=== PATIENT | male | born 1945 | race Caucasian/White ===

== ENCOUNTER → 2016-06-28 | Outpatient (CLI) | payer MEDICARE, OTHER ==
[~2016-06-28] MED LIST: ADVIL200 MG PO; MEDROL4 M1 PO; NORCO 5-325 TA1 EACH PO; PERCOCET 5-3251 EACH PO
--- NOTE | ~2016-06-28 | ESTC ---
Cardiac Perfusion Imaging Demographics Patient Name TAMAR Chapin Gender Male Patient Number [id number] Race Visit Number [id number] Ethnicity Corporate ID Room Number Accession Number [id number] Height Date of 1945 Weight Age 71 year(s) BSA Referring Physician Shellie Barrett Interpreting Shellie Date of study 06/28/2016 Physician Arnold Supervising /GIOVANI ESPINO Technologist Shivam Barrett Ordering Physician Stress Ingrid Quigley mortuary technician RD Stress ECG Reading Shellie Nurse Neville Emerson RN Physician Arnold Procedure Procedure Type: Nuclear Stress Test:Exercise, Cardiolite Stress Test Procedure Start time: 06/28/2016 08:53 Indications: Bradycardia and Symptomatic Bradycardia. Conclusions Summary Perfusion Images: The overall quality of the study is good. Left ventricular cavity is noted to be normal on the stress and rest studies. The right ventricle is not visualized and cannot be assessed. TID ratio is 1.12 Stress SPECT images and Rest SPECT images demonstrate homogenous tracer distribution throughout the myocardium except for minimal decrease uptake in the area involving the inferior wall consistent with soft tissue attenuation. Gated SPECT imaging reveals normal myocardial thickening and wall motion. The left ventricular ejection fraction was calculated to be 64%. Impression ECG portion of stress test is clinically negative for ischemia by diagnostic criteria. Myocardial perfusion imaging is probably normal. The minimal inferior wall matched defect is consistent with soft tissue attenuation. Overall left ventricular systolic function was normal without regional wall motion abnormalities. There are no previous studies for comparison . Stress Protocols Resting ECG sinus bradycardia, LAFB Pre-stress physical exam: Patient assessed by Dr Burt prior to testing. Predicted HR: 149 bpm ECG Findings No ECG changes suggestive of ischemia. Arrhythmias Rare PVCs Symptoms Fatigue at peak exercise Stress Interpretation Pt walked for 9:53 min by Valente protocol. Appropriate hemodynamic response to exercise. No significant ST-T wave changes with exercise. EKG portion is negative for ischemia by diagnostic criteria. Nuclear images are pending Imaging Results Applied corrections - Motion correction applied High risk findings Summed scores - Summed stress score: 3 - Summed rest score: 3 - Summed difference score: 0 Stress ejection Ejection fraction:65 % EDV :170 ml ESV :60 ml Stroke volume :110 ml LV mass :190 gr Imaging Protocols Rest Stress Isotope:Tc99m Sestamibi IV Isotope: Tc99m Sestamibi IV Isotope dose:14.6 mCi Isotope dose:4.34 mCi Date:06/28/2016 07:33 Date:06/28/2016 09:45 Technique: SPECT Technique: Gated Supine SPECT Supine Scan Time:45-60 minutes post Scan Time:45-60 minutes post injection injection Medical History Admission Data Admission date: 06/28/2016 Admission Time: 07:14 Hospital Status: Outpatient. Signatures dtt: ARNOLD BURT dtd: 06/28/16 0853 Physician Self Edit
== END | disposition disaster alternative care site (69) ==
LOC: GRAD 07:14
DX: R00.1 Bradycardia, unspecified (principal); R42 Dizziness and giddiness
CPT/HCPCS: A9500

== ENCOUNTER 2016-07-05 12:20 | Observation (INO) | payer MEDICARE, OTHER ==
[~2016-07-05] VITALS: Ht 182.9 cm; Wt 101.6 kg
--- NOTE | ~2016-07-05 | OR ---
PATIENT'S NAME: DAVID BOYLE [facility] AGE: 71 Y [address] ROOM: [place] [address] LOCATION: GPCU ADMIT DATE: 07/05/2016 OR/Procedure Report DISCHARGE DATE: 07/06/2016 FAMILY PHYSICIAN: Tracey Le MD ATTENDING PHYSICIAN: Deep Jimenez SURGEON: Deep Jimenez DO FRAMING MILL SUPERVISOR: DATE OF PROCEDURE: 07/05/2016 PREOPERATIVE DIAGNOSIS: Third-degree atrioventricular block. POSTOPERATIVE DIAGNOSIS: Third-degree atrioventricular block. PROCEDURES: Insertion of dual-chamber permanent pacemaker via the left subclavian vein under fluoroscopic guidance. REFERRING PHYSICIAN: Lana Mcmillan MD BRIEF HISTORY: Mr. Boyle is a 71-year-old patient of Dr. Le who has seen Dr. Mcmillan after followup for the heart monitor, and was found to have third-degree AV block. He was admitted to the hospital, and has been brought to the Operative Suite today for placement of his device. DESCRIPTION OF PROCEDURE: He was sterilely prepped and draped over the anterior chest wall. The 1% lidocaine was used to infiltrate the left infraclavicular space after appropriate IV sedation was achieved. The patient was placed into a Trendelenburg position, and the subclavian vein was accessed without difficulty. Guidewires were placed x2 under fluoroscopic guidance into the right atrium. An incision was created, and a pocket was formed. Electrocautery was used for hemostasis. Guidewires were brought through the incision. Via sheath and dilator assembly, we placed our leads. We began with the right ventricular lead. This was a Blanch [employer] MRI lead, model 7742, serial number [id number], placed in the right ventricular mid septum sensing R-waves of 8.3, with a voltage threshold of 0.5 V at 0.5 msec with pacing impedance of 710 ohms. In a similar fashion, we placed our atrial lead, also a [employer] MRI lead, model 7741, serial number [id number]. It was placed in the right atrial appendage sensing P-waves of 2.9, with a measured threshold of 1.0 V at 0.5 msec. It has a pacing impedance of 652 ohms. Each lead was then connected to the generator, which was a [employer] Essentio MRI, model L111, serial number [id number]. Leads and generators were placed into the pocket. Appropriate sensing and pacing were noted. The patient was paced DDDR with a lower rate limit of 60 and maximal tracking limit of 130. Incision was closed in a layered fashion with a 2-0 Vicryl and 4-0 Monocryl. Pressure dressings were applied. The patient was transferred to the Recovery area in a stable condition. PATIENT'S NAME: DAVID BOYLE [facility] AGE: 71 Y [address] ROOM: [place] [address] LOCATION: GPCU ADMIT DATE: 07/05/2016 OR/Procedure Report DISCHARGE DATE: 07/06/2016 FAMILY PHYSICIAN: Tracey Le MD ATTENDING PHYSICIAN: Deep Jimenez DO DANNY JULIO/cuauhtemoc /[id number] d: 07/10/164 t: 07/11/16 1044, OPERATIVE SUMMARY
--- NOTE | 2016-07-05 13:39 | NUR ---
PT is 71 y/o male admit for bradycardia for . Pt is less than willing to share information regarding his health hx and what happened with his low heart rate. He states he had a monitor on for a week and one doctor said he didn't need a pacemaker and another one called today and said he did need one. Hx lightheaded,bronchitis,urgency/frequency,nocturia. No surgeries. REsides at home with his . Plan is for pacemaker. According to [facility] records pt had a nuclear stress test on June 28 which didn't show any EKG changes during the test.
[2016-07-05] MEDS ORDERED: ADVIL200 MG PO (14:26)
[2016-07-05 15:09] LABS: PROTIME 10.5 SECONDS (9.6-11.1)
[2016-07-05 15:13] LABS: ALBUMIN 3.8 gm/dL (3.5-5.0); ANION GAP 14.6 (10.0-19.0); BLOOD UREA NITROGEN 13 mg/dL (6-24); CALCIUM 8.9 mg/dL (8.5-10.5); CHLORIDE 109 mMol/L (96-110); CO2 27 mMol/L (22-32); CREATININE 0.9 mg/dL (0.6-1.3); ESTIMATED GFR (MDRD EQUATION) > 60; PHOSPHORUS 2.8 mg/dL (2.5-4.9); POTASSIUM 3.6 mMol/L (3.7-5.1)
[2016-07-05 15:22] LABS: SODIUM 147 mMol/L (135-145)
--- NOTE | 2016-07-05 15:28 | NUR ---
Significant Event: A/O. HRs 38-45 sinus. Denies pain. Up ad georgina/assist. C/O lightheadedness at times. Down for dual chamber pacer with Dr Jimenez [id number] Follow up: post op pacer cares/ dismiss tomorrow
[2016-07-05 17:38] LABS: BILIRUBIN URINE NEGATIVE (NEGATIVE); BLOOD URINE NEGATIVE /UL (NEGATIVE); COLOR URINE YELLOW (YELLOW); GLUCOSE URINE NEGATIVE (NEGATIVE); KETONE URINE NEGATIVE (NEGATIVE); LEUKOCYTES URINE NEGATIVE /UL (NEGATIVE); NITRITE URINE NEGATIVE (NEGATIVE); PROTEIN URINE NEGATIVE (NEGATIVE); SPEC GRAVITY URINE 1.005 (1.003-1.035); TURBIDITY URINE CLEAR (CLEAR); UROBILINOGEN URINE NORMAL (NORMAL)
--- NOTE | 2016-07-06 05:12 | NUR ---
Significant Event: Patient is alert/oriented x3. Vital signs stable. Pacemaker site covered with dressings, C/D/I. [place] given x2 last night with relief. CSM on left side WNL. Continues on room air. Follow up: Dismiss to home today.
[2016-07-06 10:06] LABS: ANION GAP 11.7 (10.0-19.0); CALCIUM 8.6 mg/dL (8.5-10.5); CREATININE 1.2 mg/dL (0.6-1.3); MAGNESIUM 2.4 mg/dL (1.3-2.6); POTASSIUM 3.7 mMol/L (3.7-5.1)
[2016-07-06] MEDS ORDERED: NORCO 5-325 TA1 EACH PO (11:12)
--- NOTE | 2016-07-06 11:20 | NUR ---
Introduced self an role of care management to patient and his . [place] Patient plans home today. will assist as needed at home. Denies discharge needs at this time.
--- NOTE | 2016-07-06 11:30 | NUR ---
Patient dismissed to home with . Denies question or concern of dismissal. Walked with staff out [place] entrance. Pacer dressing removed and open to air. Site well approximated and WNL. Discussed at length pacer site care and activity restrictions.
[2016-12-07] MEDS ORDERED: ADVIL200 MG PO (16:12)
[2016-12-07] MEDS ORDERED: PERCOCET 5-3251 EACH PO (16:23)
[2016-12-07] MEDS ORDERED: MEDROL4 M1 PO (16:24)
== END 2016-07-06 11:34 | disposition disaster alternative care site (69) ==
LOC: GPCU 12:20
PROVIDERS: Thoracic Surgery (Cardiothoracic Vascular Surgery); ADMIT Internal Medicine Cardiovascular Disease
PROC: 0JH606Z Insertion of Pacemaker, Dual Chamber into Chest Subcutaneous Tissue and Fascia, Open Approach (ICD-10-PCS; principal; 2016-07-05)
PROC: 02H63JZ Insertion of Pacemaker Lead into Right Atrium, Percutaneous Approach (ICD-10-PCS; 2016-07-05)
PROC: 02HK3JZ Insertion of Pacemaker Lead into Right Ventricle, Percutaneous Approach (ICD-10-PCS; 2016-07-05)
DX: I44.2 Atrioventricular block, complete (principal); Z87.891 Personal history of nicotine dependence
CPT/HCPCS: C1785; C1898; G0378; J0690; J7030; J7050

== ENCOUNTER → 2016-08-01 | Outpatient (CLI) | payer MEDICARE, OTHER | END | disposition disaster alternative care site (69) | LOC: GRAD 08:01 | DX: Z13.6 Encounter for screening for cardiovascular disorders (principal); Z87.891 Personal history of nicotine dependence ==

== ENCOUNTER → 2016-11-05 | Day surgery (SDC) | payer MEDICARE, OTHER ==
[~2016-11-05] VITALS: Ht 182.9 cm; Wt 100.1 kg
== END ==
LOC: GPOC 10-29 09:00 → GEND 06:57 → GPOC 07:00
PROC: 0DJD8ZZ Inspection of Lower Intestinal Tract, Via Natural or Artificial Opening Endoscopic (ICD-10-PCS; principal; 2016-11-05)
DX: Z12.11 Encounter for screening for malignant neoplasm of colon (principal); K57.30 Diverticulosis of large intestine without perforation or abscess without bleeding; K64.8 Other hemorrhoids
CPT/HCPCS: J2001; J7030

== ENCOUNTER → 2016-12-06 | Outpatient (CLI) | payer MEDICARE, OTHER | END | disposition disaster alternative care site (69) | LOC: GRAD 14:10 | DX: M54.5 Low back pain (principal); M48.06 Spinal stenosis, lumbar region; M51.26 Other intervertebral disc displacement, lumbar region; M51.36 Other intervertebral disc degeneration, lumbar region; M51.37 Other intervertebral disc degeneration, lumbosacral region; M47.896 Other spondylosis, lumbar region; M47.897 Other spondylosis, lumbosacral region ==

== ENCOUNTER 2016-12-11 12:25 | Day surgery (SDC) | payer MEDICARE, OTHER ==
[~2016-12-11] VITALS: Ht 182.9 cm; Wt 100.0 kg
--- NOTE | ~2016-12-11 | OR ---
PATIENT'S NAME: DAVID BOYLE [facility] AGE: 71 Y [address] ROOM: [place] [address] LOCATION: [facility] [place] ADMIT DATE: 12/11/2016 OR/Procedure Report DISCHARGE DATE: 12/12/2016 FAMILY PHYSICIAN: Tracey Le MD ATTENDING PHYSICIAN: Elicia Chaudhary SURGEON: Elicia Chaudhary MD IT INTERN: Majo Ramirez. DATE OF PROCEDURE: 12/11/2016 CORRECTED COPY -- ACCT NO / 12-18-2016 / KLD PREOPERATIVE DIAGNOSIS: Lumbar spinal stenosis. POSTOPERATIVE DIAGNOSIS: Lumbar spinal stenosis. PROCEDURES PERFORMED: 1. Bilateral laminectomy with decompression of neural elements and foraminotomy at L3-4. 2. Bilateral laminectomy with decompression of neural elements and foraminotomy at L4-5. ANESTHESIA: General. ANESTHESIA PROVIDER: Frederic English CRNA. HISTORY: The patient is a 71-year-old gentleman, who presented with back pain and left foot drop and left leg numbness. Imaging studies showed severe spinal stenosis of L3-L4 and to some degree at L4-5 as well. Attempts at nonoperative treatments were unsuccessful. The patient's foot drop became worse and his leg weakness increased to the point where he went from using a cane to now using a walker. With the development, I felt that surgery was indicated. The above procedure, benefits, and risks were discussed with the patient and his . With their consent, the patient was brought to the operating room for surgery. PROCEDURE IN DETAIL: In the operating room, the patient was placed in a supine position. Anesthesia was induced. He was intubated. He was then rolled to a prone position on a Deacon table taking care to protect all pressure points. The incision was marked out in the midline of the lower back and the whole area was prepped and draped in a sterile fashion. Local anesthesia was infiltrated. The incision was opened with a #10 blade. The Bovie was used to deepen the incision. Self-retaining retractors were applied. Paraspinous muscles were dissected off the spinous process and laminae of L4, L3, and L5. Intraoperative x-ray was obtained to verify our levels. Hemostasis was achieved. The retractors were adjusted. Bilateral laminectomy was carried out at L3, L4, and L5. The drill was used to drill down the laminae on both sides for each of the above vertebrae. The juan miguel PATIENT'S NAME: DAVID BOYLE [facility] AGE: 71 Y [address] ROOM: [place], [place] [address] LOCATION: [facility] [place] ADMIT DATE: 12/11/2016 OR/Procedure Report DISCHARGE DATE: 12/12/2016 FAMILY PHYSICIAN: Tracey Le MD ATTENDING PHYSICIAN: Elicia Chaudhary was then used to break off the laminae and spinous processes en bloc. The laminectomy continued until the central canal was decompressed. Attention was then directed to the foramina and these were also inspected and decompressed. I worked more on the left side, which is the side where the patient had the footdrop. At the end of the procedure, the nerve roots could be seen going out into their respective foramina and the central canal was also completely decompressed. Bone wax was used to wax the edges of the laminectomy. Irrigation was used to wash out the debris. The incision was closed in standard fashion. Nylon was used to close the skin. A sterile dressing was applied. The patient was then rolled back to a supine position. His anesthesia was reversed. He was extubated and taken to the recovery room to complete his recovery. I expect he will do well. Swabs, needles, and instruments were all accounted for. Estimated blood loss was less than 500 mL. There was no reason for blood transfusion. MD GUZMAN TEJADAO/modl /[id number] CC: Tracey Le MD CORRECTED COPY -- ACCT NO / 12-18-2016 / KLD d: t: 12/18/16 0715, OPERATIVE SUMMARY
--- NOTE | 2016-12-12 01:29 | NUR ---
Significant Event: PATIENT ALERT AND ORIENTED X 3. VSS. TAKING PO AND VOIDING WITHOUT DIFFICULTY. UP WITH 1 ASSIST, GB AND WALKER TO BR. MEDIPORE DRESSING TO BACK C/D/I. PATIENT ACCIDENTLY PULLED IV OUT OF L) HAND. REFUSED TO HAVE NEW IV PLACED. PATIENT HAD IV INFILTRATE IN R) FA IN OR - REMAIN SWOLLEN. WARM PACKED ON/OFF THROUGHOUT NIGHT. L) LEG WEAKER THAN RIGHT - DOES HAVE FOOT DROP TO LEFT FOOT ALSO. OTHER CSM'S WNL. PERCOCET AND ADVIL GIVEN LAST AT 2210. PLEASANT AND COOPERTIVE WITH CARES. POSSIBLE D/C TO HOME TODAY. Follow up:
--- NOTE | 2016-12-12 17:25 | NUR ---
DISCHARGE: D: ORDERS RECEIVED FOR THE PATIENT TO BE DISCHARGED TO HOME TODAY WITH HIS . I: DISMISSAL INSTRUCTIONS WERE PREPARED AND REVIEWED WITH THE PATIENT AND HIS . THE FOLLOWING INFORMATION WAS DISCUSSED INCLUDING [employer]ES TEACHING SHEETS PROVIDED: DISCHARGE INSTRUCTIONS FOR A LAMINECTOMY, RECOVERING FROM LAMINECTOMY, PERCOCET AND PREVENTING DVT. REVIEWED NEW PRESCRIPTIONS FOR PERCOCET AND THEY WOULD NEED TO TAKE IT TO A PHARMACY OF THEIR CHOICE TO GET FILLED. R: THE PATIENT AND HIS BOTH VERBALIZED UNDERSTANDING OF THE DISMISSAL EDUCATION AT THE TIME OF TEACHING WITH NO FURTHER QUESTIONS. P: THE ABOVE INFORMATION WAS SHARED WITH THE PRIMARY NURSE AND THE CHARGE NURSE THAT THE PATIENT DISMISSAL EDUCATION WAS COMPLETED. THE PATIENT IS READY FOR DISCHARGE TO THE [facility] VIA WHEEL CHAIR BY NURSING STAFF. THE PATIENT REFUSED A WHEEL CHAIR AND DID AMBULATE WITH HIS WALKER TO THE FRONT DO[facility] WITH A WHEEL CHAIR BEHIND HIM AND NURSING STAFF FOLLOWING.
== END 2016-12-12 17:55 | disposition disaster alternative care site (69) ==
LOC: GMSU 12:25 → GSDC 12:25 → GMSU 18:31 → GPOC 12-12 07:00 → GSDC 12-12 17:55
PROC: 00NY0ZZ Release Lumbar Spinal Cord, Open Approach (ICD-10-PCS; principal; 2016-12-11)
DX: M48.06 Spinal stenosis, lumbar region (principal); I44.0 Atrioventricular block, first degree; M51.16 Intervertebral disc disorders with radiculopathy, lumbar region; Z87.39 Personal history of other diseases of the musculoskeletal system and connective tissue; Z87.891 Personal history of nicotine dependence
CPT/HCPCS: G8978; G8979; G8980; G8987; G8988; G8989; J0690; J1040; J1720; J2001; J2270; J2795; J3010; J7030; J7120

== ENCOUNTER → 2016-12-11 | Outpatient (CLI) | payer MEDICARE, OTHER ==
[2016-12-11 13:25] LABS: INR - (THERAPEUTIC) 1.01 (0.92-1.07); PROTIME 10.6 SECONDS (9.8-11.4)
== END ==
LOC: LGSMG 13:11
PROVIDERS: Neurological Surgery
DX: Z01.818 Encounter for other preprocedural examination (principal); Z79.899 Other long term (current) drug therapy